=== PATIENT | male | born 1995 | race Hispanic/Latino ===

== ENCOUNTER 2024-08-17 13:59 | Emergency (ER) | payer SELFPAY ==
[~2024-08-17] VITALS: Ht 175.3 cm; Wt 77.1 kg
--- NOTE | 2024-08-17 14:21 | ERN ---
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 HE STATES THAT HIS RIGHT LOWER EXTREMITY CAUSES HIM A LOT OF PAIN THAT HE WAS NOT ABLE TO AMBULATE. Allergies: Coded Allergies: No Known Drug Allergies (Unverified Allergy, Unknown, 08/17/24) Past Medical History Past Medical History: No Pertinent History Past Surgical History: Other ROS Dictation CONSTITUTIONAL: NO CHILLS, NO FEVER, NO WEAKNESS, NO DIAPHORESIS, NO MALAISE. HEAD/FACE: NO SIGNS OF TRAUMA. EENT: NO EYE PAIN, NO BLURRED VISION, NO TEARING, NO DOUBLE VISION, NO EAR PAIN, NO EAR DISCHARGE, NO NOSE PAIN, NO NASAL CONGESTION, NO THROAT PAIN, NO THROAT SWELLING, NO MOUTH PAIN. RESPIRATORY: NO COUGH, NO ORTHOPNEA, NO SOB, NO STRIDOR, NO WHEEZING. CARDIOVASCULAR: NO CHEST PAIN, NO EDEMA, NO PALPITATIONS, NO SYNCOPE. GASTROINTESTINAL/ABDOMINAL: NO ABDOMINAL PAIN, NO CONSTIPATION, NO DIARRHEA, NO NAUSEA, NO VOMITING. GENITOURINARY: NO ABNORMAL DISCHARGE, NO DYSURIA, NO FREQUENT URINATION, NO HEMATURIA. NO COMPLAINTS OF PAIN IN THE GENITALS. MUSCULOSKELETAL: NO BACK PAIN, NO GOUT, NO JOINT PAIN, NO JOINT SWELLING, NO MUSCLE PAIN, NO MUSCLE STIFFNESS, NO NECK PAIN. INTEGUMENTARY: NO CHANGE IN COLOR, NO CHANGE IN HAIR/NAILS, NO DRYNESS, NO LESION, NO LUMPS, NO RASH. NEUROLOGICAL/PSYCH: NO ANXIETY, NOT DEPRESSED, NO EMOTIONAL PROBLEM, NO HEADACHE, NO NUMBNESS, NO PRE-EXISTING DEFICIT, NO HISTORY OF SEIZURES, NO TREMORS, NO WEAKNESS. HEMATOLOGIC/LYMPHATIC: NOT ANEMIC, NO HISTORY OF BLOOD CLOTS, NO APPARENT BLEEDING, NO BRUISING, GLANDS NOT SWOLLEN. ALL SYSTEMS NEGATIVE, EXCEPT NOTED. Physical Exam Physical Exam Dictation VITAL SIGNS: REVIEWED. GENERAL APPEARANCE: ALERT, ORIENTED X3, NO ACUTE DISTRESS, OBESE. HEAD AND FACE: NON-TRAUMATIC. EYES: PERRL, PINK CONJUNCTIVAS, EYELID NO TRAUMA, ANTERIOR CHAMBER CLEAR. EARS: PINNAS INTACT AND NO SIGNS OF TRAUMA OR ERYTHEMA. EAR CANALS CLEAR AND NO DISCHARGE. TMS NO ERYTHEMA. NOSE: NO DISCHARGE, NO BLEEDING. OROPHARYNX: MOUTH NORMAL, TEETH NO CARIES, TONGUE PINK. PHARYNX CLEAR, NO ERYTHEMA. TONSILS NO EXUDATES, NO ABSCESSES NOTED. MUCOUS MEMBRANE MOIST. NECK: SUPPLE, NON-TENDER, NO THYROMEGALY, NO MASSES, NO JVD, NO BRUITS. BREAST: DEFERRED. CHEST: NO TENDERNESS, NO CREPITUS, NO PARADOXICAL MOVEMENT, NO RETRACTIONS. LUNGS: CLEAR, WELL-VENTILATED, SYMMETRIC, NO RALES, NO WHEEZING, NO RHONCHI, NO STRIDOR, GOOD BREATH SOUNDS BILATERALLY. HEART: REGULAR RATE, REGULAR RHYTHM, NO MURMUR, NO GALLOPS. VASCULAR: NO PERIPHERAL EDEMA. ABDOMEN: SOFT, POSITIVE BOWEL SOUNDS, NONDISTENDED, NO GUARDING, NONTENDER, NO REBOUND, NO MASSES NO HEPATOMEGALY, NO SPLENOMEGALY, NO DUNCAN'S SIGN, NO HERNIAS. RECTAL: DEFERRED. GENITAL: DEFERRED. NEUROLOGICAL: NORMAL SPEECH, GROSS MOTOR FUNCTION INTACT, GROSS SENSORY FUNCTION INTACT. MUSCULOSKELETAL: NECK NONTENDER, FULL RANGE OF MOTION, BACK NONTENDER, FULL RANGE OF MOTION. EXTREMITIES: NONTENDER, FULL RANGE OF MOTION. RIGHT LOWER EXTREMITY TENDERNESS TO PALPATION IN THE RIGHT HIP RIGHT KNEE AND RIGHT ANKLE. NO DEFORMITY NOTED. SENSATION INTACT. REFLEXES INTACT. BABINSKI NEGATIVE. SKIN: COLOR PINK, DRY, NO TURGOR, NO RASH, NO LACERATIONS, NO ABRASIONS, NO CONTUSIONS. LYMPHATICS: DEFERRED. Results EKG/XRAY/US/CT/MRI X-RAY Comment CHEST X-RAY WITH LEFT RIB SERIES [place] [address] [id number] IMAGING REPORT Signed PATIENT: MIRELLA PANDEY MR#: [id number] : 1995 SEX: M AGE: 29 LOCATION: [facility] ORDER 20 STATUS: REG REPORT#: [id number] SERVICE 20 REASON: FALL ORDERING PHYSICIAN: IRASEMA CARLISLE MD PROCEDURE: FT 3VW RT - FOOT COMP 3+VWS RT RIGHT FOOT RADIOGRAPHS - 3 VIEWS INDICATION: Pain COMPARISON: None FINDINGS: AP, lateral, and oblique views. No acute fracture or subluxation identified. Midfoot alignment is well maintained. No radiopaque foreign body noted. IMPRESSION: No evidence for fracture or subluxation. DICTATED BY: SULLY BRIAN MD DATE: 08/17/241450 ELECTRONICALLY SIGNED BY: SULLY BRIAN MD DATE: 08/17/241458 [address] [place], [place] [address] IMAGING REPORT Signed PATIENT: MIRELLA PANDEY MR#: [id number] : 1995 SEX: M AGE: 29 LOCATION: ED ORDER 04 STATUS: REG [facility] REPORT#: [id number] SERVICE 02 REASON: fall ORDERING PHYSICIAN: IRASEMA CARLISLE MD PROCEDURE: KNEE 3V RT - KNEE 3VWS RT RIGHT KNEE RADIOGRAPHS - 3 VIEWS INDICATION: Pain COMPARISON: None FINDINGS: AP, lateral, and oblique views. No acute fracture or dislocation identified. No significant joint effusion is present. Overlying soft tissues appear normal. IMPRESSION: No evidence for fracture or dislocation. DICTATED BY: SULLY BRIAN MD DATE: 08/17/241451 ELECTRONICALLY SIGNED BY: SULLY BRIAN MD DATE: 08/17/241458 [address] [id number] IMAGING REPORT Signed PATIENT: MIRELLA PANDEY MR#: [id number] : 1995 SEX: M AGE: 29 LOCATION: ED ORDER 04 STATUS: REG ER REPORT#: [id number] SERVICE 02 REASON: fall ORDERING PHYSICIAN: IRASEMA CARLISLE MD PROCEDURE: HIPS B 3V - HIP BILAT 3-4VW BILATERAL HIP, INCLUDING AP PELVIS, RADIOGRAPHS - 3 VIEWS INDICATION: Pain COMPARISON: None FINDINGS: Abduction view of the left and right hip and single AP view of the pelvis. No acute fracture or subluxation identified. Both femoral heads are well formed without osteochondral erosion or radiographic evidence for avascular necrosis. No radiopaque foreign body noted. IMPRESSION: No evidence for fracture or dislocation. DICTATED BY: SULLY BRIAN MD DATE: 08/17/241451 ELECTRONICALLY SIGNED BY: SULLY BRIAN MD DATE: 08/17/241458 [place] [address] [place] [id number] IMAGING REPORT Signed PATIENT: MIRELLA PANDEY MR#: [id number] : 1995 SEX: M AGE: 29 LOCATION: [facility] ORDER 04 STATUS: REG [facility] REPORT#: [id number] SERVICE 02 REASON: fall ORDERING PHYSICIAN: IRASEMA CARLISLE MD PROCEDURE: QPR1GOVT - ANKLE 2VWS RT RIGHT ANKLE RADIOGRAPHS - 2 VIEWS INDICATION: Pain COMPARISON: None FINDINGS: AP, lateral views. No acute fracture or subluxation identified. The talar dome is intact. Ankle mortise and tibial plafond are well maintained. No significant joint effusion is present. No radiopaque foreign body noted. IMPRESSION: No evidence for fracture or dislocation. DICTATED BY: SULLY BRIAN MD DATE: 08/17/241450 ELECTRONICALLY SIGNED BY: SULLY BRIAN MD DATE: 08/17/241458 [facility] MDM: DIFFERENTIAL DIAGNOSIS: FALL, RIGHT FOOT CONTUSION, RIGHT FOOT SPRAIN PATIENT IS A 29-YEAR-OLD MALE COMING IN TO BE EVALUATED FOR RIGHT FOOT PAIN. UPON EVALUATION IMAGING STUDIES NEGATIVE FOR ACUTE FINDINGS. PATIENT WILL BE DISCHARGED IN STABLE CONDITION WITH DIAGNOSIS OF RIGHT FOOT CONTUSION, POSSIBLE RIGHT FOOT FRACTURE. ED Course Orders Procedure Category Date Status Time Hip Bilat 3-4vw RAD 08/17/24 Resulted 14:03 Knee 3vws Rt RAD 08/17/24 Resulted 14:03 Ankle 2vws Rt RAD 08/17/24 Resulted 14:03 Ondansetron 4mg Inj PHA 08/17/24 Complete (Zofran 4mg Inj) 14:30 Morphine 2mg Syg PHA 08/17/24 Complete (Morphine 2mg Syg) 14:30 Foot Comp 3+Vws Rt RAD 08/17/24 Resulted 14:21 Ribs Uni Lt W Pa RAD 08/17/24 Taken Chest 3+Vws 14:38 Current Medications Medications (Trade) Dose Ordered Sig/Zina Route PRN Reason Start Time Stop Time Status Last Admin Dose Admin Morphine Sulfate (morPHINE 2MG SYG) 2 mg ONCE ONCE IVP 08/17/24 14:30 08/17/24 14:31 DC 08/17/24 14:22 Ondansetron HCl (zoFRAN 4MG INJ) 4 mg ONCE ONCE IVP 08/17/24 14:30 08/17/24 14:31 DC 08/17/24 14:22 Vital Signs Date Time Temp Pulse Resp B/P (MAP) Pulse Ox O2 Delivery O2 Flow Rate FiO2 08/17/24 14:03 98.4 63 21 129/69 98 Room Air 0 DX & DISP Disposition: Discharge Departure Impression: Primary Impression: Fall Additional Impressions: Contusion of right foot, Foot fracture Condition: Stable Scripts Acetaminophen (Tylenol) 500 Mg Tab 1 TAB PO Q6HPRN PRN for pain or fever for 5 Days, #30 TAB 0 Refills Prov: IRASEMA CARLISLE MD 08/17/24 Additional Instructions: FOLLOW-UP WITH PRIMARY CARE PROVIDER IN 1 TO 2 DAYS. TAKE MEDICATIONS DIRECTED HERE IN THE EMERGENCY ROOM. OKAY TO CONTINUE HOME MEDICATIONS UNLESS OTHERWISE DISCUSSED DURING YOUR VISIT IN THE EMERGENCY ROOM TODAY. RETURN TO YOUR NEAREST EMERGENCY ROOM IF SYMPTOMS WORSEN OR IF THERE IS NO IMPROVEMENT. CALL 911 IF YOU NEED IMMEDIATE ASSISTANCE. TAKE TYLENOL [id number] NEEDED AND IF NO CONTRAINDICATIONS ARE PRESENT. INCREASE ORAL HYDRATION. A WOUND CULTURE OR URINE CULTURE WAS ORDERED HERE IN THE EMERGENCY ROOM DEPARTMENT PLEASE FOLLOW-UP WITH PRIMARY CARE PROVIDER AND ADVISE THEM TO GET REPEAT PORTS FROM OUR FACILITY. IF YOU HAD ANY NILA WRAP/SPLINTS THAT WERE APPLIED HERE, PLEASE DO NOT REMOVE THEM UNTIL YOU SEE YOUR PRIMARY CARE OR SPECIALTY. REFERRALS: Referrals: SELF,REFERRAL (PCP) LAURA PARSONS MD, LUIS A MD Time of Disposition: 16:27 IRASEMA CARLISLE MD Aug 17, 2024 14:21
[2024-08-17] MEDS: ondanSETRON 4MG INJ IVP ONE (14:22)
[2024-08-17] MEDS: morPHINE 2 MG SYG IVP ONE (14:22)
--- NOTE | 2024-08-17 14:59 | HMCIMG ---
RIGHT KNEE RADIOGRAPHS - 3 VIEWS INDICATION: Pain COMPARISON: None FINDINGS: AP, lateral, and oblique views. No acute fracture or dislocation identified. No significant joint effusion is present. Overlying soft tissues appear normal. IMPRESSION: No evidence for fracture or dislocation.
--- NOTE | 2024-08-17 14:59 | HMCIMG ---
BILATERAL HIP, INCLUDING AP PELVIS, RADIOGRAPHS - 3 VIEWS INDICATION: Pain COMPARISON: None FINDINGS: Abduction view of the left and right hip and single AP view of the pelvis. No acute fracture or subluxation identified. Both femoral heads are well formed without osteochondral erosion or radiographic evidence for avascular necrosis. No radiopaque foreign body noted. IMPRESSION: No evidence for fracture or dislocation.
--- NOTE | 2024-08-17 14:59 | HMCIMG ---
RIGHT ANKLE RADIOGRAPHS - 2 VIEWS INDICATION: Pain COMPARISON: None FINDINGS: AP, lateral views. No acute fracture or subluxation identified. The talar dome is intact. Ankle mortise and tibial plafond are well maintained. No significant joint effusion is present. No radiopaque foreign body noted. IMPRESSION: No evidence for fracture or dislocation.
--- NOTE | 2024-08-17 14:59 | HMCIMG ---
RIGHT FOOT RADIOGRAPHS - 3 VIEWS INDICATION: Pain COMPARISON: None FINDINGS: AP, lateral, and oblique views. No acute fracture or subluxation identified. Midfoot alignment is well maintained. No radiopaque foreign body noted. IMPRESSION: No evidence for fracture or subluxation.
--- NOTE | 2024-08-17 15:00 | NUR ---
FRACTURE BOOT APPLIED TO RIGHT ANKLE.
[2024-08-17] MEDS ORDERED: ACET-66 PO (16:28)
--- NOTE | 2024-08-17 16:39 | HMCIMG ---
RIBS UNI LT W PA CHEST 3+VWS CLINICAL HISTORY: FALL COMPARISON: None TECHNIQUE: 5 images were obtained. FINDINGS: The lungs are clear. The cardiac size unremarkable. The bony structures are intact IMPRESSION: There is no identified acute trauma
[2024-08-17 17:33] VITALS: BP 134/82; PULSE 82; RESP 18; TEMP 98.3; O2SAT 98
--- NOTE | 2024-08-17 18:10 | HMCIMG ---
ANKLE COMP 3VWS LT CLINICAL HISTORY: fall COMPARISON: None TECHNIQUE: AP lateral and oblique images were obtained. FINDINGS: No obvious fracture or dislocation. No joint effusion. The soft tissues appear unremarkable. No radiopaque foreign bodies. IMPRESSION: No acute findings.
== END 2024-08-17 17:35 | disposition home or self-care (01) ==
LOC: EDH 13:59
DX: S92.901A Unspecified fracture of right foot, initial encounter for closed fracture (principal); S90.31XA Contusion of right foot, initial encounter; W11.XXXA Fall on and from ladder, initial encounter; Y93.89 Activity, other specified; Y92.89 Other specified places as the place of occurrence of the external cause; Y99.8 Other external cause status
CPT/HCPCS: 99284; 96374; 96375; 73610; 73600; 73630; 73522; 73562; 71101; J2270; J2405